=== PATIENT | male | born 1950 | race Caucasian/White ===

== ENCOUNTER → 2021-01-31 | Outpatient (CLI) | payer MEDICARE, OTHER | LOC: KOH-I 08:51 | DX: K76.6 Portal hypertension (principal); K75.81 Nonalcoholic steatohepatitis (NASH); K76.9 Liver disease, unspecified; R16.1 Splenomegaly, not elsewhere classified | CPT/HCPCS: 76700 ==

== ENCOUNTER → 2021-06-22 | Outpatient (CLI) | payer MEDICARE, OTHER | LOC: KOH-I 09:40 | DX: R05.9 Cough, unspecified (principal); J06.9 Acute upper respiratory infection, unspecified; R91.8 Other nonspecific abnormal finding of lung field | CPT/HCPCS: 71046 ==

== ENCOUNTER → 2021-07-25 | Outpatient (CLI) | payer MEDICARE, OTHER | LOC: KOH-I 09:51 | DX: K74.60 Unspecified cirrhosis of liver (principal); K72.90 Hepatic failure, unspecified without coma; K75.81 Nonalcoholic steatohepatitis (NASH); S09.90XA Unspecified injury of head, initial encounter; R51.9 Headache, unspecified; R16.1 Splenomegaly, not elsewhere classified; N28.1 Cyst of kidney, acquired | CPT/HCPCS: 70450; 73030; 73110; 76700 ==

== ENCOUNTER → 2021-12-21 | Outpatient (CLI) | payer MEDICARE, OTHER | LOC: US 10:21 | DX: K74.60 Unspecified cirrhosis of liver (principal); K72.90 Hepatic failure, unspecified without coma; R18.8 Other ascites; R16.0 Hepatomegaly, not elsewhere classified | CPT/HCPCS: 76700 ==